=== PATIENT | male | born 1950 | race Caucasian/White ===

== ENCOUNTER 2018-04-10 08:07 | Emergency (ER) | payer MEDICARE, OTHER ==
[2018-04-10] MEDS ORDERED: Sodium Chloride 0.9% 10 ML Syringe FLUSH PRN (08:38)
--- NOTE | 2018-04-10 09:43 | EDM.PDOC ---
ED HPI GENERAL MEDICAL PROBLEM - General Chief Complaint: Cardiovascular Problem Stated Complaint: HEART PALPITATIONS Time Seen by Provider: 04/10/18 08:28 Source of Information: Reports: Patient History Limitations: Reports: No Limitations - History of Present Illness INITIAL COMMENTS - FREE TEXT/NARRATIVE: The patient presents with palpitations. He has a phone carlos for heart rate and this morning it said danger. He decided to come get it checked out. He does not feel like his heart is racing. He does have a history of A-fib. He is on eliquis and plavix. He had about 5 "mini strokes" a few years ago. He had a complete work up. They found he had A-fib so he is on the blood thinners. 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 They are monitoring this. He has no chest pain. He does get short of breath sometimes with exertion. He has exercise induced asthma. He has no fever, chills, cough, congestion, abdominal pain, nausea or vomiting. He does say he is shaky in his arms at times. He also has a heart rate normally near 100. He has no edema or pain in his legs. Onset: Gradual Duration: Hour(s): Severity: Mild Improves with: Reports: None Worsens with: Reports: None Associated Symptoms: Reports: Shortness of Breath. Denies: Chest Pain, Cough, Fever/Chills, Headaches, Nausea/Vomiting - Related Data Allergies Allergy/AdvReac Type Severity Reaction Status Date / Time clindamycin Allergy Other Verified 04/10/18 08:26 Penicillins Allergy Hives Verified 04/10/18 08:26 Home Meds: Home Meds Apixaban [Eliquis] 5 mg PO BID 04/10/18 [History] Clopidogrel [Plavix] 75 mg PO DAILY 04/10/18 [History] Diltiazem HCl [Diltiazem 24Hr ER] 120 mg PO DAILY 04/10/18 [History] Escitalopram [Lexapro] 10 mg PO DAILY 04/10/18 [History] Insulin Detemir [Levemir] 39 unit SUBCUT DAILY 04/10/18 [History] Losartan [Cozaar] 100 mg PO DAILY 04/10/18 [History] glyBURIDE [Glyburide] 10 mg PO BID 04/10/18 [History] metFORMIN [Glucophage] 850 mg PO BIDMEALS 04/10/18 [History] Social & Family History - Tobacco Use Smoking Status *Q: Never Smoker ED ROS GENERAL - Review of Systems Review Of Systems: See Below Constitutional: Reports: No Symptoms HEENT: Reports: No Symptoms Respiratory: Reports: Shortness of Breath Cardiovascular: Reports: No Symptoms Endocrine: Reports: No Symptoms GI/Abdominal: Reports: No Symptoms : Reports: No Symptoms Musculoskeletal: Reports: No Symptoms ED EXAM, GENERAL - Physical Exam Exam: See Below Exam Limited By: No Limitations General Appearance: Alert, No Apparent Distress Ears: Normal External Exam Nose: Normal Inspection Head: Atraumatic, Normocephalic Neck: Normal Inspection Respiratory/Chest: No Respiratory Distress, Lungs Clear, Normal Breath Sounds Cardiovascular: No Edema, No Murmur, Tachycardia GI/Abdominal: Soft, Non-Tender, No Organomegaly, No Mass Back Exam: Normal Inspection Extremities: Normal Inspection EKG INTERPRETATION EKG Date: 04/10/18 Time: 08:28 Rhythm: Other (Sinus tachycardia) Rate (Beats/Min): 104 [place]: Normal P-Wave: Present QRS: Normal ST-T: Normal QT: Normal EKG Interpretation Comments: Q waves in the inferior leads Course - Vital Signs Last Recorded V/S: Last Vital Signs Temp 98.5 F 04/10/18 08:26 Pulse 107 H 04/10/18 08:26 Resp 18 04/10/18 08:26 BP 145/80 H 04/10/18 08:26 Pulse Ox 97 04/10/18 08:26 - Orders/Labs/Meds Orders: Active Orders 24 hr Category Date Time Status Cardiac Monitoring [RC] . DIRECTED Care 04/10/18 08:38 Active EKG Documentation Completion [RC] STAT Care 04/10/18 08:39 Active Peripheral IV Care [RC] . DIRECTED Care 04/10/18 08:39 Active Sodium Chloride 0.9% [Saline Flush] Med 04/10/18 08:38 Active 10 ml FLUSH ASDIRECTED PRN Peripheral IV Insertion Adult [OM.PC] Stat Oth 04/10/18 08:38 Ordered Medication Orders Sodium Chloride (Saline Flush) 10 ml FLUSH ASDIRECTED PRN PRN Reason: Keep Vein Open Last Admin: 04/10/18 09:08 Dose: 10 ml Labs: Laboratory Tests 05/04/10/18 04/10/18 Range/Units 09:00 09:00 09:00 WBC 8.85 (4.23-9.07) K/mm3 RBC 4.53 L (4.63-6.08) M/mm3 Hgb 12.9 L (13.7-17.5) gm/L Hct 38.6 L (40.1-51.0) % MCV 85.2 (79.0-92.2) fl MCH 28.5 (25.7-32.2) pg MCHC 33.4 (32.2-35.5) g/dl RDW Std Deviation 45.8 H (35.1-43.9) fL Plt Count 240 (163-337) K/mm3 MPV 12.0 (9.4-12.3) fl Neut % (Auto) 73.4 H (34.0-67.9) % Lymph % (Auto) 13.1 L (21.8-53.1) % Dunn % (Auto) 9.4 (5.3-12.2) % Eos % (Auto) 3.7 (0.8-7.0) Baso % (Auto) 0.3 (0.1-1.2) % Neut # (Auto) 6.49 H (1.78-5.38) K/mm3 Lymph # (Auto) 1.16 L (1.32-3.57) K/mm3 Dunn # (Auto) 0.83 H (0.30-0.82) K/mm3 Eos # (Auto) 0.33 (0.04-0.54) K/mm3 Baso # (Auto) 0.03 (0.01-0.08) K/mm3 D-Dimer, Quantitative 0.41 (0.19-0.50) mg/L Sodium 134 L (136-145) mEq/L Potassium 4.3 (3.5-5.1) mEq/L Chloride 101 (98-107) mEq/L Carbon Dioxide 23 (21-32) mEq/L Anion Gap 14.3 (5-15) BUN 22 H (7-18) mg/dL Creatinine 1.2 (0.7-1.3) mg/dL Est Cr Clr Drug Dosing 65.66 mL/min Estimated GFR (MDRD) > 60 (>60) mL/min BUN/Creatinine Ratio 18.3 H (14-18) Glucose 318 H (80-115) mg/dL Hemoglobin A1c (4.50-6.20) % Calcium 9.1 (8.5-10.1) mg/dL Total Bilirubin 0.6 (0.2-1.0) mg/dL AST 17 (15-37) U/L ALT 24 (16-63) U/L Alkaline Phosphatase 62 (46-116) U/L Troponin I < 0.017 (0.00-0.056) ng/mL NT-Pro-B Natriuret Pep (0-125) pg/mL Total Protein 7.4 (6.4-8.2) g/dl Albumin 3.4 (3.4-5.0) g/dl Globulin 4.0 gm/dL Albumin/Globulin Ratio 0.9 L (1-2) 04/10/18 04/10/18 Range/Units 09:00 09:00 WBC (4.23-9.07) K/mm3 RBC (4.63-6.08) M/mm3 Hgb (13.7-17.5) gm/L Hct (40.1-51.0) % MCV (79.0-92.2) fl MCH (25.7-32.2) pg MCHC (32.2-35.5) g/dl RDW Std Deviation (35.1-43.9) fL Plt Count (163-337) K/mm3 MPV (9.4-12.3) fl Neut % (Auto) (34.0-67.9) % Lymph % (Auto) (21.8-53.1) % Dunn % (Auto) (5.3-12.2) % Eos % (Auto) (0.8-7.0) Baso % (Auto) (0.1-1.2) % Neut # (Auto) (1.78-5.38) K/mm3 Lymph # (Auto) (1.32-3.57) K/mm3 Dunn # (Auto) (0.30-0.82) K/mm3 Eos # (Auto) (0.04-0.54) K/mm3 Baso # (Auto) (0.01-0.08) K/mm3 D-Dimer, Quantitative (0.19-0.50) mg/L Sodium (136-145) mEq/L Potassium (3.5-5.1) mEq/L Chloride (98-107) mEq/L Carbon Dioxide (21-32) mEq/L Anion Gap (5-15) BUN (7-18) mg/dL Creatinine (0.7-1.3) mg/dL Est Cr Clr Drug Dosing mL/min Estimated GFR (MDRD) (>60) mL/min BUN/Creatinine Ratio (14-18) Glucose (80-115) mg/dL Hemoglobin A1c 8.40 H (4.50-6.20) % Calcium (8.5-10.1) mg/dL Total Bilirubin (0.2-1.0) mg/dL AST (15-37) U/L ALT (16-63) U/L Alkaline Phosphatase (46-116) U/L Troponin I (0.00-0.056) ng/mL NT-Pro-B Natriuret Pep 54 (0-125) pg/mL Total Protein (6.4-8.2) g/dl Albumin (3.4-5.0) g/dl Globulin gm/dL Albumin/Globulin Ratio (1-2) Meds: Medications Generic Name Dose Route Start Last Admin Trade Name Freq PRN Reason Stop Dose Admin Sodium Chloride 10 ml 04/10/18 08:38 04/10/18 09:08 Saline Flush FLUSH 10 ml ASDIRECTED PRN Administration Keep Vein Open - Re-Assessments/Exams Free Text/Narrative Re-Assessment/Exam: 04/10/18 09:45 I ordered an IV saline lock, EKG, CXR, labs, and I will keep him on the monitor. 04/10/18 10:38 His EKG shows a sinus tachycardia with some inferior Q waves. No acute changes. His EKG shows nothing acute. His CBC looks good. His D-dimer was negative. His Na was a little low at 134. His glucose was elevated at 318. his Hgb A1C was elevated at 8.4. His troponin was negative. He still had no chest pain and he did not go into A-fib on our monitor. I will discharge him home. 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 Please return if you are worse. - My Orders Last 24 Hours: My Active Orders 04/10/18 08:38 Cardiac Monitoring [RC] . DIRECTED Sodium Chloride 0.9% [Saline Flush] 10 ml FLUSH ASDIRECTED PRN Peripheral IV Insertion Adult [OM.PC] Stat 04/10/18 08:39 EKG Documentation Completion [RC] STAT Peripheral IV Care [RC] . DIRECTED - Assessment/Plan Last 24 Hours: My Active Orders 04/10/18 08:38 Cardiac Monitoring [RC] . DIRECTED Sodium Chloride 0.9% [Saline Flush] 10 ml FLUSH ASDIRECTED PRN Peripheral IV Insertion Adult [OM.PC] Stat 04/10/18 08:39 EKG Documentation Completion [RC] STAT Peripheral IV Care [RC] . DIRECTED
--- NOTE | 2018-04-10 10:02 | CR ---
Chest: Portable view of the chest was obtained. Comparison: No prior chest x-ray. Heart size and mediastinum appear within normal limits for portable technique. Calcifications are seen within the right paratracheal soft tissues which are felt to represent calcified lymph nodes. Lungs are clear with no acute parenchymal densities. Bony structures are grossly intact. Impression: 1. Calcifications within the right paratracheal soft tissues most likely representing calcified lymph nodes. 2. Nothing acute is seen on portable chest x-ray. Diagnostic code #2
== END 2018-04-10 10:59 | disposition home or self-care (01) ==
LOC: JD.ED 08:07
DX: R00.2 Palpitations (principal); E11.9 Type 2 diabetes mellitus without complications; Z79.4 Long term (current) use of insulin; Z88.1 Allergy status to other antibiotic agents; Z88.0 Allergy status to penicillin; Z79.899 Other long term (current) drug therapy
CPT/HCPCS: 36415; 71045; 80053; 83036; 83880; 84484; 85025; 85379; 93005; 99285; J7050